=== PATIENT | male | born 1970 | race African-American/Black ===

== ENCOUNTER → 2019-02-10 | Outpatient (CLI) | payer OTHER ==
--- NOTE | 2019-02-10 11:25 | KCIC ---
MRI of the lumbar spine without contrast 02/10/2019 CLINICAL HISTORY: Low back pain which radiates down the right hip. TECHNIQUE: Unenhanced T1-weighted, T2-weighted and inversion recovery sagittal and T1-weighted and T2-weighted axial images of the lumbar spine were obtained. FINDINGS: Comparison is made to radiographs of the lumbar spine dated 01/20/2019. Very mild S-shaped curvature of the thoracolumbar spine is seen. Degenerative signal changes are seen involving the L3-4, L4-5 and L5-S1 discs. Degenerative signal changes are seen within the marrow surrounding these discs. Loss of height of the L5-S1 disc is noted. The conus medullaris is normal in morphology, position, and signal characteristics. The L1-2 and L2-3 disc spaces are within normal limits. At the L3-4 disc space there is a minimal generalized disc bulge. Degenerative changes are seen involving the facet joints bilaterally. There is mild ligamentum flavum hypertrophy bilaterally. There is prominence of the posterior epidural fat. These findings when combined do not result in significant central spinal canal or neural foraminal stenosis. At the L4-5 disc space there is a mild generalized disc bulge. Superimposed on this disc bulge is a focal central disc protrusion. This measures 3 mm in AP diameter. Degenerative changes are seen involving the facet joints bilaterally. There are small facet joint effusions. There is mild to moderate ligamentum flavum hypertrophy bilaterally. There is prominence of the posterior epidural fat. These findings when combined result in mild to moderate central spinal canal stenosis. No neural foraminal stenosis is seen. At the L5-S1 disc space there is a mild generalized disc bulge. Superimposed on this disc bulge is a central/right paracentral focal disc osteophyte complex. This measures 4 mm in AP diameter. Degenerative changes are seen involving the facet joints bilaterally. There are small facet joint effusions bilaterally. There is mild ligamentum flavum hypertrophy bilaterally. There is prominence of the posterior epidural fat. These findings when combined result in mild right greater than left central spinal canal stenosis. No neural foraminal stenosis is seen. IMPRESSION: The changes of degenerative disc disease are seen involving the mid and lower lumbar spine. These findings result in mild to moderate central spinal canal stenosis at L4-5 and mild right greater than left central spinal canal stenosis at L5-S1. No neural foraminal stenosis is seen. Electronically signed by: Tony Ortiz MD (02/10/2019 11:22 AM) [facility]
== END | disposition home or self-care (01) ==
LOC: KCIC MRI 09:45
DX: M47.816 Spondylosis without myelopathy or radiculopathy, lumbar region (principal); M51.16 Intervertebral disc disorders with radiculopathy, lumbar region; M43.8X6 Other specified deforming dorsopathies, lumbar region; M47.817 Spondylosis without myelopathy or radiculopathy, lumbosacral region; M89.38 Hypertrophy of bone, other site; M48.061 Spinal stenosis, lumbar region without neurogenic claudication
CPT/HCPCS: 72148